=== PATIENT | male | born 1955 | race Caucasian/White ===

== ENCOUNTER 2016-10-12 10:55 | Inpatient (IN) | payer BC ==
[2016-10-12] MEDS ORDERED: Acetaminophen 325 MG Tab PO PRN (12:35)
[2016-10-12] MEDS: D5 1/2 NS w/ 20 mEq/L KCl 1,000 ML IV SCH (13:49)
[2016-10-12] MEDS: Sodium Chloride 0.9% 10 ML Syringe FLUSH PRN (13:49)
[2016-10-12] MEDS ORDERED: LORazepam 2 MG/ML Syringe IVPUSH PRN (17:44)
[2016-10-12] MEDS ORDERED: Pantoprazole 40 MG in Sodium Chloride 0.9% 100 ML IV SCH (17:45)
[2016-10-12] MEDS ORDERED: Pantoprazole 80 MG in Sodium Chloride 0.9% 100 ML IV ONE (18:00)
[2016-10-12] MEDS ORDERED: Sodium Chloride 0.9% 10 ML Syringe FLUSH PRN (18:20)
[2016-10-12] MEDS ORDERED: Pantoprazole 80 MG in Sodium Chloride 0.9% 100 ML IV SCH (18:30)
[2016-10-12] MEDS ORDERED: Acetaminophen 650 MG Supp RECTAL PRN (20:08)
[2016-10-12] MEDS ORDERED: Iopamidol 612 MG/ML 100 ML Bottle IVPUSH ONE (22:13)
[2016-10-12] MEDS ORDERED: Furosemide 20 MG/2 ML VIAL IVPUSH ONE (23:00)
[2016-10-13] MEDS ORDERED: Furosemide 20 MG/2 ML VIAL IVPUSH ONE (04:00)
--- NOTE | 2016-10-13 04:49 | HP ---
CHIEF COMPLAINT: Black stools for the last week. HISTORY OF PRESENT ILLNESS: Mr. Samaniego is a 61-year-old gentleman, who was referred from clinic for admission. He was seen by Barry Diallo NP. He presented with complaints of feeling weak, no energy, sweating over the last week. He also noted that for the last week his stools have been quite dark, almost black. He denied any other symptoms. He was referred for workup. Lab work at the clinic also showed that he had developed an anemia. Hemoglobin and hematocrit were 10 and 30.7 compared to 16.7 and 49.2 four months ago. He was admitted for further evaluation and management. PAST MEDICAL HISTORY: Chronic renal calculi, most recent in May 2016; chronic headaches and neck pain due to degenerative disk disease of cervical spine; vitamin D deficiency; osteoarthritis of the knees; chronic environmental allergies; hypertension; BPH without urinary obstruction; bilateral sensorineural hearing loss, 06/11/2016, left greater than right. PAST SURGICAL HISTORY: Bilateral carpal tunnel release, bilateral knee replacements, colonoscopy in March 2012. IMMUNIZATION HISTORY: Flu vaccine on 03/02/2016. Tdap 06/11/2016. He has never received the pneumonia vaccines. SOCIAL HISTORY: He grew up in the [facility]. He graduated from [employer]. No service. He is . He and his own Vidmaker. They have 2 children and 1 grandchild. He has never smoked cigarettes. He does not chew tobacco. He drinks only occasional social alcohol. FAMILY HISTORY: Both of his parents are . His father had coronary artery disease and a myocardial infarction. His mother 2 years ago of complications of advanced Parkinson's disease. One brother 3 years ago of unknown cause, possible blood clot. He has 2 living brothers and 1 sister. REVIEW OF SYSTEMS: He states that he first noticed dark stools about 1 week ago. He denies any previous episode. He feels weak, he has no energy. He sweats easily with any kind of exertion. There has been no nausea or vomiting. No bright red blood by mouth. He has had some crampy abdominal pain and he points mostly to the left upper quadrant lateral to the midline. He did have an EGD in the past by Dr. Lopez, which showed some type of ulceration in the esophagus and had been on Prilosec in the past. It should be noted that he has been on a daily anti- inflammatory, Mobic for his chronic arthritis of the neck. During this time, he was not on any GI prophylaxis. He has had recurrent renal calculi for which he is on chronic hydrochlorothiazide which apparently helps. He has multiple environmental allergies. He has chronic degenerative disk disease of cervical spine and goes to [facility] 2[facility]3 times a year for injections. He has multiple environmental allergies including molds, pollen, grass, trees. At times the allergies cause some chest tightness for which he uses an occasional inhaler. He has bilateral sensorineural hearing loss, worse on the left than the right. Denies any new headaches. No recent vision or hearing changes. He does wear reading glasses. He denies any swallowing difficulties or sore throat. He denies chest pain. He has felt short of breath for the last week. No history of obstructive sleep apnea. Appetite is good. Weight is stable. He has noticed increased number of bowel movements in the last week. He gets up about once a night to urinate. He has had no recent falls or injuries. No recent illnesses or hospitalizations. CURRENT MEDICATIONS: 1. Nortriptyline 50 mg daily. 2. Albuterol inhaler p.r.n. 3. Hydrochlorothiazide 25 mg daily. 4. Trazodone 100 mg daily for sleep. 5. Singulair 10 mg daily. 6. Zyrtec allergy p.r.n. 7. Fluticasone nasal spray. 8. Meclizine 25 mg p.r.n. 9. He has been on Mobic 15 mg daily for at least for last 2 years. 10.Vitamin D 400 units daily. 11.He is on several uygw-kya-zrkyege supplements including potassium gluconate, Prostate Health and Osteo Bi-Flex vitamin. ALLERGIES: He has environmental allergies, but no known drug allergies. PHYSICAL EXAMINATION: General: He is a pleasant gentleman, he is in no acute distress. He is alert, oriented, articulate, and participated throughout the visit. Vital Signs: Blood pressure was 129/87 on the left 121/78 on the right. Pulse 88 and regular, respiratory rate 20, oxygen saturation 97% on room air. Height 5 feet 8 inches. Weight 270 pounds. BMI 38.6. HEENT: Unremarkable. ENT was clear. He had pale membranes in the lower conjunctival sac. Mouth showed moist mucous membranes. ENT was otherwise clear. No JVDs or bruits. No adenopathy. No thyromegaly. Chest: Showed clear but diminished bilateral breath sounds without wheezes, rales, or rhonchi. Heart: Showed irregular rate and rhythm with muffled heart sounds. Abdomen: Soft, obese, benign, hypoactive bowel sounds. There is some mild tenderness on palpation in the left upper quadrant lateral to the midline. No guarding or rebound. No masses were appreciated. Extremities: Showed no edema. Neurological: There were no gross motor or sensory deficits. Skin: Warm and dry to touch. Palms were pale. He does have a ramos which reduces his pallor. LABS: Labs were performed in clinic today. CBC showed a white count of 9.1, platelets were 205,000, hemoglobin and hematocrit were 10.2 and 30.7 with an MCV of 90.1. Four months ago, hemoglobin and hematocrit had been 16.7 and 49.2. Chemistry showed BUN and creatinine of 18 and 1.2 with a GFR of more than 60. Electrolytes were unremarkable. Nonfasting blood sugar was 121. Albumin was 3.3. LFTs were otherwise within normal limits. Lipase was normal at 163 (73 and 393). Amylase was normal at 68 (25-115). IMPRESSION: A 61-year-old gentleman, presents with history of melena for the last week. He has been on a daily NSAID, Mobic for the last 2 years. PLAN: 1. He was admitted as an acute inpatient for further workup of his acute anemia and the possibility of an upper GI bleed. 2. He was typed and crossed, 2 units were placed on hold. He is A positive antibody negative. 3. We will recheck hemoglobin later today and follow carefully and transfuse as indicated. I discussed this with Mr. Samaniego and he agreed to take a blood transfusion as needed. 4. He was kept n.p.o. except for ice chips during the day. He was started on IV fluids with D5 half-normal saline with 20 mEq of potassium per L. 5. He was given a Protonix IV bolus followed by Protonix 8 mg/hour continuous drip. CODE STATUS: FULL CODE. Case was discussed with Dr. Lopez and patient was referred to him for endoscopy. Mr. Samaniego will undergo upper endoscopy tomorrow morning, October 13, 2016. After 10 p.m. this evening, he will be completely n.p.o. CONDITION: At the time of admission, hemodynamically neurologically stable. [facility] /[id number] MTDD
--- NOTE | 2016-10-13 04:53 | PN ---
DATE: 10/13/2016 Mr. Samaniego is a 61-year-old gentleman who was admitted yesterday directly from clinic with the chief complaint of melena for the last week. He was found to be significantly anemic. Hemoglobin and hematocrit were 10.2 and 30.7 compared to 16.7 and 49.2 four months ago. We have been monitoring his hemoglobin and hematocrit,. Repeat hemoglobin and hematocrit this afternoon were 9.9 and 29.8. He has agreed to transfusion when indicated. It was decided that he would be transfused 1 unit of packed red blood cells prior to planned endoscopy later this morning. Before the blood could be started, he developed a temperature of 100.3 degrees. Temperature was repeated several times over the next 2 hours and remained elevated at 101.2. He was given rectal Tylenol for this as we were keeping him n.p.o. The remainder of his vital signs remained stable. Blood pressure was in the range to 125/65, pulse ranged between 80 and 90, and oxygen saturations 100% on room air. Because of the fever and out of concern for any acute intraabdominal event, we did further testing. Repeat hemoglobin and hematocrit were 9.4 and 28.1. Lactic acid was 1.0. Urinalysis showed a clear yellow urine with a specific gravity of 1.015 and was a negative study. We also did 2 sets of blood cultures. We ordered a CT scan of the abdomen and pelvis with the use of IV contrast to rule out any other intraabdominal infection or even the possibility of a perforation. Findings showed liver to be borderline mildly enlarged, but otherwise unremarkable. The gallbladder was unremarkable. There were no stones. No ductal dilatation. Pancreas was unremarkable. Remainder of the abdominal organs were seen. There was diffuse colonic diverticulosis without any evidence for acute diverticulitis. Appendix was normal with no sign of infection. Bladder was unremarkable. Abdomen and pelvis showed no free air. No significant fluid collection. There were diffuse multilevel chronic degenerative changes of the lower thoracic and lumbar spine. There was no adenopathy. There was some mild central mesenteric fat stranding with mildly prominent lymph nodes. This was compared to previous study from November 2014. The findings were felt to show stable chronic mild mesenteric adenitis. There were no acute incidental findings. Following the CT scan, we did transfuse Mr. Samaniego 1 unit of packed red blood cells (A positive, antibody negative). He will receive 40 mg IV Lasix following the transfusion. He continues on IV fluids with D5 half-normal saline with potassium. Later today, we will recheck his hemoglobin and hematocrit and a basic panel when he returns from endoscopy. He is wearing MARGOT hose for VTE prophylaxis. We are not using any pharmacological prophylaxis because of the probable GI bleed. We will continue to monitor him closely. His temperature has come down and has now remained below 100 degrees since about 2 a.m. this morning. Vital signs have remained stable. IMPRESSION: Probable upper gastrointestinal bleed. PLAN: For EGD this morning with Dr. Lopez. [facility] /[id number] MTDMary Ellen
[2016-10-13] MEDS ORDERED: Midazolam 1 MG/ML 2 ML SDV ONE (05:48)
[2016-10-13] MEDS ORDERED: fentaNYL 100 MCG/2 ML SDV ONE (05:48)
[2016-10-13] MEDS ORDERED: fentaNYL 100 MCG/2 ML SDV IV ONE ×3 (06:17→16:30)
[2016-10-13] MEDS ORDERED: Midazolam 1 MG/ML 2 ML SDV IV ONE ×3 (06:18→16:30)
--- NOTE | 2016-10-13 07:04 | PN ---
DATE: 10/13/2016 SUBJECTIVE: Denies any specific difficulties. No upper abdominal pain. No lower abdominal cramps. No dyspepsia. Denies anginal kind of chest pain, palpitations, or exertional dyspnea. No postural dizziness. Did not sleep much at night. OBJECTIVE: Vital Signs: Stable. Lungs: No adventitious sounds heard. Heart: S1 and S2, regular. No CHF. No leg edema. Spine: No CVA or spinal tenderness noted. Abdomen: Obese, soft. No areas of tenderness elicited. Bowel sounds active. INVESTIGATIONS: Most recent hemoglobin 9.4, hematocrit 28.1, lactic acid 1. UA; 0 to 5 rbc's and few bacteria. PLAN: Continue with intravenous fluids, frequent hemoglobin and hematocrit monitor, on intravenous pantoprazole now. Will proceed with EGD as scheduled, the patient acceptable. [facility] /[id number] HERMINIO
--- NOTE | 2016-10-13 07:10 | OR ---
DATE: 10/13/2016 PROCEDURES: Esophagogastroduodenoscopy and multiple pinch biopsies. INSTRUMENT USED: GIF-H180 Olympus video panendoscope. PREMEDICATIONS: No oral topical anesthesia used. Fentanyl 100 mcg intravenous, Versed 2 mg intravenous. Nasal O2 cannula. The procedure was done under pulse oximetry, BP recording, and director of cardiac cath lab. INDICATION: The patient on long-term NSAIDs, coming in with gastrointestinal bleeding and related anemia requiring packed cell transfusions. Esophagogastroduodenoscopy is performed for detection of any active erosive lesions, [place] esophagus and/or malignancy also under consideration, H. pylori status to be determined, endoscopic hemostasis therapy if needed. DESCRIPTION OF PROCEDURE: The scope was passed with ease. Adequate visualization of the esophagus was made from proximal to distal areas. No upper esophageal lesions identified. No distal esophageal stricture. No uphill or downhill esophageal varices. No Velma-Isbell tear. No evidence of erosive esophagitis by [place] criteria. No esophageal polyp or tumor mass identified. Z-line was seen at around 40 cm distal to the oral verge, configuration consistent with grade 1 by ZAP classification. No proximal gastric varices noted. Gastric fundus examination by retroflexion showed no polypoid lesions. No gastric ulcer, malignant mass, or vascular ectasia identified. Duodenal bulb showed no ulcer. Visualized second part of the duodenum was unremarkable. Multiple pinch biopsies were taken from the gastric antrum and proximal body and sent for PyloriTek test for H. pylori, and if negative in an hour, tissue is to be sent for histopathology. No bleeding was noted from any of the visualized areas at the completion of examination. Photographs were taken of the duodenal bulb, gastric antrum, fundus, and distal esophagus. IMPRESSION: Normal study. The patient tolerated the procedure well. [facility] /[id number]
--- NOTE | 2016-10-13 07:17 | PN ---
DATE: 10/13/2016 TIME: 6:45 a.m. SUBJECTIVE: Feels well. Denies any specific difficulties. OBJECTIVE: Vital signs: Stable. Abdomen: Soft. RECOMMENDATIONS: Continue with intravenous fluids, frequent hemoglobin and hematocrit monitor, packed cell transfusions as needed, PT/PTT. Colonoscopy scheduled with 4 L of GoLYTELY with bowel preparation tomorrow, the patient acceptable. IMPRESSION: 1. Iron-deficiency anemia. 2. Gastrointestinal bleeding. 3. Exogenous obesity. 4. Nephrolithiasis. 5. Degenerative joint disease of cervical spine, status post bilateral carpal tunnel release, status post bilateral knee replacement surgery. 6. Vitamin D deficiency. 7. Benign prostatic hypertrophy. 8. Hearing impairment. [facility] /[id number]
[2016-10-13] MEDS: Dextrose 5%-0.45% NaCl 1,000 ML IV SCH (07:53)
[2016-10-13] MEDS: D5 1/2 NS w/ 20 mEq/L KCl 1,000 ML IV SCH (10:46)
[2016-10-13 11:05] LABS: CHLORIDE,CL 101 mmol/L (101-111); SODIUM,NA 138 mmol/L (135-145)
--- NOTE | 2016-10-13 12:11 | CONS ---
SERVICE DATE: 10/12/2016 HISTORY OF PRESENT ILLNESS: This 61-year-old gentleman is seen in Gastroenterology consultation for further evaluation and management of gastrointestinal bleeding. He has been on meloxicam alf for arthralgia involving multiple joints as well as left-sided neck pain. Recently he was started on tricyclic for left-sided headache and neck pain 3 weeks ago. He took the medicine for a couple of weeks, and having noted some dark stools discontinued the medication few days ago. About 10 days ago, he noted black stools and also some bright red blood in the stools. Has not taken iron pills or Pepto-Bismol. Had some dyspepsia as well as abdominal pain in the past 10 days or so. Had some heartburn. No vomiting. No hematemesis. Has been eating as usual. Denies any recent progressive alteration in bowel habits. No alternating diarrhea and constipation. No progressive leg edema. REVIEW OF SYSTEMS: He has had longstanding difficulties with left-sided neck pain and headache. Denies any recent vertigo or syncopal episodes. Denies any change in urinary habits. No progressive leg edema or intermittent claudication. No difficulty with ambulation. Denies any low back pain of significance. Has had difficulties with arthralgia involving multiple joints. No recent nasal congestion, cough, or expectoration. No anginal chest pain, palpitations, or exertional dyspnea. No progressive weight loss or gain in the recent months. SOCIAL HISTORY: Runs a business. Stays with his . Does not take aspirin- related medications regularly. Does not take much of coffee and pop drinks. No milk intolerance. FAMILY HISTORY: Positive for kidney stone. Negative for IBD, colon polyp, or colon cancer. Positive for heart disease. PAST MEDICAL HISTORY AND SURGICAL HISTORY: Past illness: Exogenous obesity, DJD, status post bilateral knee replacement surgical procedures. No previous peptic ulcer disease or hepatitis. ALLERGIES: No allergy to any medications. MEDICATIONS: Medications he has been taking at home included turmeric and Mobic. Was on nortriptyline till a week ago, taking for a couple of weeks before. PHYSICAL EXAMINATION: Vital Signs: Weight 266.2 pounds, BP 118/60, temperature 98, pulse 65 per minute. General: Alert, oriented, a bit anxious. Neck: No generalized lymphadenopathy. No carotid bruit heard. No thyroid nodules felt. Lungs: Clear. Heart: S1 and S2 regular. Extremities: No pitting edema of the legs noted. No phlebitis. No tremors. No peripheral signs of chronic liver disease noted. Abdomen: Obese, soft. No ascites. No hepatosplenomegaly. Some tenderness elicited in all the areas. Bowel sounds active. Rectal: Stools obtained, black in color. Hemoccult positive. IMPRESSION: 1. Gastrointestinal bleeding. 2. Iron deficiency anemia. 3. Exogenous obesity. 4. Degenerative joint disease. 5. Status post bilateral knee replacement surgery. 6. History of nephrolithiasis. RECOMMENDATIONS: N.p.o. except for ice chips today. Intravenous fluids. Intravenous PPI. Frequent hemoglobin, hematocrit determinations. PT, PTT. Packed cell transfusions if needed. Endoscopic evaluation discussed. He is acceptable to proceed with. Procedures, goals, limitations, and complications including remote events related to EGD, colonoscopy, biopsies, polypectomies, endoscopic hemostasis therapy, and conscious sedation explained in detail. Missed lesions, malignant and potentially malignant talked about, alternatives discussed and informed consent obtained. EGD scheduled for 10/13/2016, will follow. [facility] /[id number]
[2016-10-13] MEDS ORDERED: Potassium Chloride 10 MEQ Tab.ER PO ONE (14:02)
[2016-10-13] MEDS ORDERED: Polyethylene Glycol/Electrolytes 4,000 ML Bottle PO SCH (17:00)
[2016-10-13] MEDS: Sodium Chloride 0.9% 10 ML Syringe FLUSH PRN (17:42)
[2016-10-13] MEDS: Pantoprazole 40 MG Vial IVPUSH SCH (17:42)
[2016-10-13] MEDS: Polyethylene Glycol/Electrolytes 4,000 ML Bottle PO SCH (17:51)
[2016-10-14] MEDS: D5 1/2 NS w/ 20 mEq/L KCl 1,000 ML IV SCH (00:17)
[2016-10-14] MEDS: Polyethylene Glycol/Electrolytes 4,000 ML Bottle PO SCH (02:00)
[2016-10-14] MEDS: Pantoprazole 40 MG Vial IVPUSH SCH (05:14)
[2016-10-14] MEDS ORDERED: fentaNYL 100 MCG/2 ML SDV ONE (06:16)
[2016-10-14] MEDS ORDERED: Midazolam 1 MG/ML 2 ML SDV ONE (06:16)
[2016-10-14] MEDS ORDERED: fentaNYL 100 MCG/2 ML SDV IV ONE ×3 (06:32→13:10)
[2016-10-14] MEDS ORDERED: Midazolam 1 MG/ML 2 ML SDV IV ONE ×8 (06:33→13:49)
[2016-10-14] MEDS: Dextrose 5%-0.45% NaCl 1,000 ML IV SCH (06:58)
--- NOTE | 2016-10-14 07:05 | PN ---
DATE: 10/13/2016 SUBJECTIVE: Mr. Samaniego underwent upper endoscopy this morning. This was performed by Dr. Lopez. The upper endoscopy was completely within normal limits and did not reveal any source for his blood loss. Multiple biopsies were taken for H. pylori and the H. pylori urease test returns negative. The results were discussed Dr. Lopez. Mr. Samaniego is now scheduled to have a colonoscopy performed tomorrow morning, October 14. His diet will be advanced today to a clear liquid diet and he will start his bowel prep at 5 p.m. A gallon of GoLYTELY has been ordered and instructions placed in the computer. His hemoglobin and hematocrit were rechecked today and continue to improve and are now 11.2 and 34. Hemoglobin and hematocrit at the time of admission were 9.9 and 29.8. He received 1 unit of packed red blood cells (A positive, antibody negative) and has remained hemodynamically stable throughout the admission. PHYSICAL EXAMINATION: General: He is seated in his room. He appears improved since the time of admission. His color is better; he is not as pale. He states he continues to have some mild left upper quadrant pain, but in general does feel better, but continues to feel tired. Vital Signs: Blood pressure was 123/74, pulse 81, respiratory rate 20, oxygen saturation 98% on room air. He is afebrile. ENT: Clear. Chest: Showed clear with diminished bilateral breath sounds. Heart: Showed regular rate and rhythm. Abdomen: Obese, soft, benign with minimal tenderness in the left upper quadrant. Neurological: He is intact. IMPRESSION: A 61-year-old man, presented with profound anemia and melena. EGD today was within normal limits. PLAN: He is now scheduled for colonoscopy on the morning of October 14, 2016. He does have extensive diverticulosis. The differential diagnosis for the blood loss anemia still includes the possibility of a diverticular bleed,as well as angiodysplasia or some other intraabdominal/colonic pathology. We will continue the present management and await the results of the colonoscopy. Late labs: I did contact the [facility] lab to see if there were pre- transfusion blood samples from 10/12 available. They did have blood and additional tests were ordered from those samples including: iron, TIBC, ferritin, and reticulocyte count. Iron was in the low- normal range at 37 (35-150). Total iron binding capacity was in the low-normal range at 263 (250 to 450). Ferritin was elevated at 395 (3 to 244). Reticulocyte count was elevated at 4.8% (0.5-3.5%). In addition, stool collected on the in the clinic was positive for blood. [facility] /[id number] MTDD
--- NOTE | 2016-10-14 07:23 | PN ---
DATE: 10/14/2016 SUBJECTIVE: Denies any specific difficulties. Did not sleep much at night. No significant abdominal pain. No anginal kind of chest pain, palpitations, or shortness of breath. No cough or expectoration. No chills. OBJECTIVE: Vital Signs: Stable. General: Alert, oriented. Lungs: Clear. No CHF. Heart: S1, S2, regular. Abdomen: Obese, soft. No areas of significant tenderness elicited. Bowel sounds active. INVESTIGATIONS: Hemoglobin and hematocrit stable around 11. We will proceed with colonoscopy as scheduled. [facility] /[id number]
--- NOTE | 2016-10-14 07:26 | OR ---
DATE: 10/14/2016 PROCEDURE: Total colonoscopy. INSTRUMENT USED: PCF-160AL Olympus video colonoscope. PREMEDICATIONS: Fentanyl 100 mcg intravenous, Versed 4.5 mg intravenous. Nasal O2 cannula. The procedure was done under pulse oximetry, BP recording, and manager monitoring. INDICATION: The patient with gastrointestinal bleeding, requiring packed cell transfusions and EGD negative for bleeding areas. Colonoscopic examination is done for detection of any polypoid lesions and removal, endoscopic hemostasis therapy if needed. DESCRIPTION OF PROCEDURE: Initial rectal exam was unremarkable. Rigid anoscopy was normal. The colonoscope was passed with ease. Numerous scattered diverticula were noted in the entire colon, more so in the distal left colon along with some deformity. The scope was passed with ease up to the ileocecal area, photographs were taken of the normal-appearing cecum, identified by double-bulged ileocecal folds. No bleeding was noted from any of the visualized areas at the commencement of the examination. No stricture. No vascular ectasia. No large isolated ulcerations seen. No evidence of diffuse inflammatory bowel disease in the form of friability, contact bleeding, or ulcerations. No polyp or tumor mass identified. Probing the proximal sides of folds and flexures, using adequate distention and clearing of the stool material, withdrawal of the scope was made, cecum to rectum time over 6 minutes. No bleeding was noted from any of the visualized areas at the completion of examination. IMPRESSION: [place] diverticulosis. The patient tolerated the procedure well. [facility] /[id number]
--- NOTE | 2016-10-14 07:33 | PN ---
DATE: 10/14/2016 TIME: 7:00 a.m. Feels well. No specific difficulties. Stable vital signs. Abdomen is soft. RECOMMENDATIONS: If stable, can be discharged home with iron pills and follow up at the clinic. For any further evaluation and management, return early if needed. PT/PTT unremarkable. Needs to follow up with reference to elevated CRP. IMPRESSION: 1. Iron deficiency anemia, status post gastrointestinal bleeding. 2. [place] diverticulosis. [facility] /[id number]
[2016-10-14 11:22] VITALS: BP 126/73
--- NOTE | 2016-10-14 12:02 | DISCH ---
FINAL DIAGNOSES: 1. Probable gastrointestinal bleed related to nonsteroidal antiinflammatory drug use. 2. Anemia, probable acute blood loss. 3. Osteoarthritis. 4. Degenerative disease of the spine. 5. Benign prostatic hypertrophy. SUMMARY OF HOSPITAL COURSE: Mr. Samaniego is a 61-year-old man who presented with complaint of weakness and generalized body malaise. He stated that his stool was dark in color and later became black. Complete blood count was obtained and it showed a hemoglobin down to 10 from 16 four months ago. The patient had been using Mobic for the past 2 years. We consulted Gastroenterology and he proceeded to have upper and lower gastrointestinal endoscopy that did not show any abnormality. The patient will be discharged on oral iron and will have a repeat complete blood count in 1 week. He will also be discharged on Protonix. Also, has been advised to quit using the Mobic. If he has to use it, he has to be on proton pump inhibitor, but at this point because of his weakness, I will recommend holding it for now. The patient required transfusion of 1 unit of packed red blood cells during hospitalization. Hemoglobin improved to 11.2. PHYSICAL EXAMINATION: General: The patient is alert, oriented to place, time, and person. Head: Atraumatic and normocephalic. Ear, Nose, and Throat: Unremarkable. Neck: Supple. Chest: Clear to auscultation. CVS: Regular rate and rhythm. Abdomen: Soft, nontender. Extremities: No pedal edema. No finger clubbing. Skin: No rash. [facility] /[id number]
== END 2016-10-14 13:50 | disposition home or self-care (01) | DRG 254 ==
LOC: DL.MS 11:33 → UNDOADMIN 11:33 → DL.MS 12:35
PROVIDERS: ADMIT Internal Medicine; ATTEND Internal Medicine
PROC: 0DB88ZX Excision of Small Intestine, Via Natural or Artificial Opening Endoscopic, Diagnostic (ICD-10-PCS; 2016-10-13)
PROC: 30233N1 Transfusion of Nonautologous Red Blood Cells into Peripheral Vein, Percutaneous Approach (ICD-10-PCS; 2016-10-13)
PROC: 0DJD8ZZ Inspection of Lower Intestinal Tract, Via Natural or Artificial Opening Endoscopic (ICD-10-PCS; principal; 2016-10-14)
DX: K92.1 Melena (principal); D50.9 Iron deficiency anemia, unspecified; K57.30 Diverticulosis of large intestine without perforation or abscess without bleeding; M19.90 Unspecified osteoarthritis, unspecified site; M50.30 Other cervical disc degeneration, unspecified cervical region; E55.9 Vitamin D deficiency, unspecified; M17.0 Bilateral primary osteoarthritis of knee; I10 Essential (primary) hypertension; N40.0 Benign prostatic hyperplasia without lower urinary tract symptoms; E66.09 Other obesity due to excess calories; Z68.38 Body mass index [BMI] 38.0-38.9, adult; N20.0 Calculus of kidney; Z96.653 Presence of artificial knee joint, bilateral; Z79.899 Other long term (current) drug therapy
CPT/HCPCS: 36415; 36430; 74177; 80048; 81001; 83605; 84132; 85014; 85018; 85610; 85730; 86140; 86850; 86900; 86901; 86920; 86922; 87040; 87077; 87086; A9270-GY; C9113; J1940; J2060; J2250; J3010; J3480; J7042; J7050; P9016; Q9967

== ENCOUNTER 2019-06-25 11:56 | Emergency (ER) | payer BC ==
[2019-06-25 12:16] VITALS: BP 138/86
--- NOTE | 2019-06-25 12:35 | EDM.PDOC ---
ED HPI GENERAL MEDICAL PROBLEM - General Chief Complaint: Cardiovascular Problem Stated Complaint: COLD IN CHEST Time Seen by Provider: 06/25/19 12:32 Source of Information: Reports: Patient History Limitations: Reports: No Limitations - History of Present Illness INITIAL COMMENTS - FREE TEXT/NARRATIVE: 2 weeks h/o cough congestion chest tightness SOB, saw clinic x2 got nebs & steroids & ABX but not helping. gets SOB from usual activity. denies smoking denies asthma. - Related Data Allergies Allergy/AdvReac Type Severity Reaction Status Date / Time mold Allergy Severe Anaphylactic Verified 06/25/19 12:07 Shock wheat pollen Allergy Severe Anaphylactic Uncoded 06/25/19 12:08 Shock Home Meds: Home Meds Potassium 99 mg PO DAILY 12/05/14 [History] Albuterol [Proventil HFA] 6.7 gm INH BID 10/12/16 [History] Glucosamine/D3/Boswellia Cherry [Osteo Bi-Flex Tablet] 1 tab PO BID 10/12/16 [ History] Hydrochlorothiazide 25 mg PO DAILY 10/12/16 [History] Montelukast [Singulair] 10 mg PO BEDTIME 10/12/16 [History] Non-Formulary Medication [NF Drug] 1 tab PO DAILY 10/12/16 [History] Non-Formulary Medication [NF Drug] 1,000 each PO BID 10/12/16 [History] traZODone HCl [Trazodone HCl] 100 mg PO DAILY 10/12/16 [History] Ferrous Sulfate 325 mg PO BID #60 tablet 10/14/16 [Rx] Pantoprazole Sodium [Protonix] 40 mg PO DAILY #30 suspdr.pkt 10/14/16 [Rx] Past Medical History HEENT History: Reports: Allergic Rhinitis, Hard of Hearing Respiratory History: Reports: None Gastrointestinal History: Reports: None Genitourinary History: Reports: Prostate Disorder, Renal Calculus Other Genitourinary History: enlarged prostate Musculoskeletal History: Reports: Arthritis, Osteoarthritis Other Musculoskeletal History: knees, hands and neck Neurological History: Reports: Headaches, Chronic, Other (See Below) Other Neuro History: nerve ablasions in back of neck Psychiatric History: Reports: None Endocrine/Metabolic History: Reports: None - Infectious Disease History Infectious Disease History: Reports: Shingles Other Infectious Disease History: had vaccine after outbreak - Past Surgical History GI Surgical History: Reports: Colonoscopy Other GI Surgeries/Procedures: 2012 Male Surgical History: Reports: Other (See Below) Musculoskeletal Surgical History: Reports: Knee Replacement Other Musculoskeletal Surgeries/Procedures:: bilateral knee 2014,2016 Social & Family History - Family History Family Medical History: Noncontributory - Tobacco Use Smoking Status *Q: Never Smoker Second Hand Smoke Exposure: No - Caffeine Use Caffeine Use: Reports: Energy Drinks Other Caffeine Use: daily - Recreational Drug Use Recreational Drug Use: No ED ROS GENERAL - Review of Systems Review Of Systems: Comprehensive ROS is negative, except as noted in HPI. ED EXAM, GENERAL - Physical Exam Exam: See Below Exam Limited By: No Limitations General Appearance: Alert, WD/WN, Mild Distress, Other (discomfort) Ears: Hearing Grossly Normal Throat/Mouth: Normal Voice, No Airway Compromise Head: Atraumatic Neck: Non-Tender, Full Range of Motion Respiratory/Chest: Decreased Breath Sounds, Rhonchi Cardiovascular: Regular Rate, Rhythm GI/Abdominal: Soft, Non-Tender Neurological: Alert, Oriented, Normal Cognition, Normal Gait, No Motor/Sensory Deficits Psychiatric: Flat Affect Skin Exam: Warm, Dry, Normal Color Lymphatic: No Adenopathy Course - Vital Signs Last Recorded V/S: Last Vital Signs Temp 36.4 C 06/25/19 12:05 Pulse 54 L 06/25/19 14:00 Resp 18 06/25/19 12:05 BP 138/86 06/25/19 12:05 Pulse Ox 100 06/25/19 12:05 - Orders/Labs/Meds Orders: Active Orders 24 hr Category Date Time Status EKG 12 Lead [EKG Documentation Completion] [RC] STAT Care 06/25/19 12:31 Active RT Aerosol Therapy [RC] ASDIRECTED Care 06/25/19 13:52 Active Chest 2V [CR] Urgent Exams 06/25/19 14:02 Taken CULTURE BLOOD [BC] Stat Lab 06/25/19 12:43 Results Sodium Chloride 0.9% [Normal Saline] 1,000 ml Med 06/25/19 13:51 Active IV .BOLUS Medication Orders Sodium Chloride (Normal Saline) 1,000 mls @ 999 mls/hr IV .BOLUS ONE Stop: 06/25/19 14:51 Last Admin: 06/25/19 14:06 Dose: 999 mls/hr Labs: Laboratory Tests 06/25/19 06/25/19 06/25/19 Range/Units 12:43 12:43 12:43 WBC 11.0 H (5.0-10.0) 10^3/uL RBC 5.51 (4.6-6.2) 10^6/uL Hgb 17.2 D (14.0-18.0) g/dL Hct 49.2 (40.0-54.0) % MCV 89.3 (80-100) fL MCH 31.2 (27.0-34.0) pg MCHC 35.0 (33.0-35.0) g/dL Plt Count 194 D (150-450) 10^3/uL Neut % (Auto) 70.3 (42.2-75.2) % Lymph % (Auto) 19.2 L (20.5-50.1) % [place] % (Auto) 8.3 H (2-8) % Eos % (Auto) 1.9 (1.0-3.0) % Baso % (Auto) 0.3 (0.0-1.0) % D-Dimer, Quantitative (0-400) ng/mL Sodium 138 (135-145) mmol/L Potassium 3.2 L (3.6-5.0) mmol/L Chloride 102 (101-111) mmol/L Carbon Dioxide 28.0 (21.0-31.0) mmol/L Anion Gap 11.2 BUN 13 (7-18) mg/dL Creatinine 1.0 (0.6-1.3) mg/dL Est Cr Clr Drug Dosing 71.25 mL/min Estimated GFR (MDRD) > 60 BUN/Creatinine Ratio 13.00 Glucose 102 (74-105) mg/dL Lactic Acid 1.6 (0.5-2.0) mmol/L Calcium 9.0 (8.4-10.2) mg/dl Total Bilirubin 1.0 (0.2-1.0) mg/dL AST 23 (10-42) IU/L ALT 20 (10-60) IU/L Alkaline Phosphatase 50 (42-121) IU/L Troponin I < 0.02 (0.00-0.02) ng/ml B-Natriuretic Peptide 10 (0-100) pg/ml Total Protein 6.7 (6.7-8.2) g/dl Albumin 3.6 (3.2-5.5) g/dl Globulin 3.1 Albumin/Globulin Ratio 1.16 06/25/19 Range/Units 12:43 WBC (5.0-10.0) 10^3/uL RBC (4.6-6.2) 10^6/uL Hgb (14.0-18.0) g/dL Hct (40.0-54.0) % MCV (80-100) fL MCH (27.0-34.0) pg MCHC (33.0-35.0) g/dL Plt Count (150-450) 10^3/uL Neut % (Auto) (42.2-75.2) % Lymph % (Auto) (20.5-50.1) % [place] % (Auto) (2-8) % Eos % (Auto) (1.0-3.0) % Baso % (Auto) (0.0-1.0) % D-Dimer, Quantitative < 100 (0-400) ng/mL Sodium (135-145) mmol/L Potassium (3.6-5.0) mmol/L Chloride (101-111) mmol/L Carbon Dioxide (21.0-31.0) mmol/L Anion Gap BUN (7-18) mg/dL Creatinine (0.6-1.3) mg/dL Est Cr Clr Drug Dosing mL/min Estimated GFR (MDRD) BUN/Creatinine Ratio Glucose (74-105) mg/dL Lactic Acid (0.5-2.0) mmol/L Calcium (8.4-10.2) mg/dl Total Bilirubin (0.2-1.0) mg/dL AST (10-42) IU/L ALT (10-60) IU/L Alkaline Phosphatase (42-121) IU/L Troponin I (0.00-0.02) ng/ml B-Natriuretic Peptide (0-100) pg/ml Total Protein (6.7-8.2) g/dl Albumin (3.2-5.5) g/dl Globulin Albumin/Globulin Ratio Meds: Medications Generic Name Dose Route Start Last Admin Trade Name Freq PRN Reason Stop Dose Admin Sodium Chloride 1,000 mls @ 999 mls/hr 06/25/19 13:51 06/25/19 14:06 Normal Saline IV 06/25/19 14:51 999 mls/hr .BOLUS ONE Administration Discontinued Medications Generic Name Dose Route Start Last Admin Trade Name Terese PRN Reason Stop Dose Admin Albuterol/Ipratropium 3 ml 06/25/19 13:51 06/25/19 14:00 Duoneb 3.0-0.5 Mg/3 Ml NEB 06/25/19 13:52 3 ml ONETIME ONE Administration Methylprednisolone Sodium Succinate 125 mg 06/25/19 13:51 06/25/19 14:06 Solu-Medrol IVPUSH 06/25/19 13:52 125 mg ONETIME ONE Administration - Re-Assessments/Exams Free Text/Narrative Re-Assessment/Exam: 06/25/19 14:44 results discussed with pt who is feeling better s/p neb + IV Rx Departure - Departure Time of Disposition: 14:45 Disposition: Home, Self-Care 01 Condition: Good Clinical Impression: Acute bronchitis with bronchospasm Instructions: Acute Bronchitis, Adult, [id number] Forms: ED Department Discharge Additional Instructions: 1) rest 2) continue neb treatment 3 to 4 times daily for cough 3) continue present meds 4) see Sameer tomorrow for PULMONOLOGY REFERRAL and CHILD GUIDANCE COUNSELOR REFERRAL 5) recheck if there is any change or concerns Sepsis Event Note - Evaluation Sepsis Screening Result: No Definite Risk - Focused Exam Vital Signs: Vital Signs Temp Pulse Resp BP Pulse Ox 06/25/19 14:00 54 L 06/25/19 12:05 36.4 C 61 18 138/86 100 Date Exam was Performed: 06/25/19 Time Exam was Performed: 14:44 - My Orders Last 24 Hours: My Active Orders 06/25/19 12:31 EKG 12 Lead [EKG Documentation Completion] [RC] STAT 06/25/19 12:43 CULTURE BLOOD [BC] Stat 06/25/19 13:51 Sodium Chloride 0.9% [Normal Saline] 1,000 ml IV .BOLUS 06/25/19 13:52 RT Aerosol Therapy [RC] ASDIRECTED 06/25/19 14:02 Chest 2V [CR] Urgent - Assessment/Plan Last 24 Hours: My Active Orders 06/25/19 12:31 EKG 12 Lead [EKG Documentation Completion] [RC] STAT 06/25/19 12:43 CULTURE BLOOD [BC] Stat 06/25/19 13:51 Sodium Chloride 0.9% [Normal Saline] 1,000 ml IV .BOLUS 06/25/19 13:52 RT Aerosol Therapy [RC] ASDIRECTED 06/25/19 14:02 Chest 2V [CR] Urgent
[2019-06-25 13:37] LABS: ANION GAP 11.2; CHLORIDE,CL 102 mmol/L (101-111); SODIUM,NA 138 mmol/L (135-145)
[2019-06-25] MEDS ORDERED: Albuterol/Ipratropium 3.0-0.5 MG/3 ML Neb Soln NEB ONE (13:51)
[2019-06-25] MEDS ORDERED: methylPREDNISolone Sodium Succinate 125 MG/2 ML SDV IVPUSH ONE (13:51)
[2019-06-25] MEDS ORDERED: Sodium Chloride 0.9% 1,000 ML IV ONE (13:51)
[2019-06-25 14:02] VITALS: PULSE 54
== END 2019-06-25 15:20 | disposition home or self-care (01) ==
LOC: DL.ED 11:56
DX: J20.9 Acute bronchitis, unspecified (principal); M19.90 Unspecified osteoarthritis, unspecified site; Z91.018 Allergy to other foods; Z79.899 Other long term (current) drug therapy
CPT/HCPCS: 36415; 71046; 80053; 83605; 83880; 84484; 85025; 85379; 87040; 93005; 94640; 96361; 96374; 99285; J2930; J7030; J7620-GY

== ENCOUNTER 2020-08-30 14:36 | Emergency (ER) | payer BC ==
[2020-08-30] MEDS ORDERED: Propofol 200 MG/20 ML SDV IV ONE (14:37)
[2020-08-30 15:02] VITALS: BP 160/82
[2020-08-30] MEDS ORDERED: Bacitracin Oint 1 GM U/D Packet TOP ONE (15:02)
[2020-08-30] MEDS ORDERED: Lidocaine 1% 30 ML SDV INJECT ONE (15:02)
[2020-08-30 15:10] VITALS: PULSE 52
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
--- NOTE | 2020-08-30 16:25 | CR ---
PROCEDURE INFORMATION: Exam: XR Right Shoulder Exam date and time: 08/30/2020 3:58 PM Age: 65 years old Clinical indication: Pain; Shoulder; Right; Additional info: Post reduction TECHNIQUE: Imaging protocol: XR Right shoulder. Views: 1 view. COMPARISON: CR Shoulder Comp Rt 08/30/2020 3:07 PM FINDINGS: Bones/joints: Scapular Y-view of the right shoulder shows [facility] of normal glenohumeral alignment in this projection compared with the radiograph 3:12 p.m. today. Bone overlap obscures detail Soft tissues: Normal. IMPRESSION: Normal glenohumeral alignment on single scapular Y-view.
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
== END 2020-08-30 16:42 | disposition home or self-care (01) ==
LOC: DL.ED 14:36
DX: S43.004A Unspecified dislocation of right shoulder joint, initial encounter (principal); S01.81XA Laceration without foreign body of other part of head, initial encounter; Z91.048 Other nonmedicinal substance allergy status; Z91.018 Allergy to other foods; V86.99XA Unspecified occupant of other special all-terrain or other off-road motor vehicle injured in nontraffic accident, initial encounter
CPT/HCPCS: 01620; 12011; 23650; 70450; 72125; 73020-RT; 73030-RT; 73070-RT; 73100-RT; 73590-RT; 99284; 99284-25; J2704

== ENCOUNTER 2022-12-27 00:32 | Emergency (ER) | payer BC ==
[2022-12-27] MEDS ORDERED: Take Home: Azithromycin 250 MG, 2 Tab Pack PO ONE (02:07)
[2022-12-27] MEDS ORDERED: Take Home: predniSONE 20 MG, 4 Tab Pack PO ONE (02:07)
[2022-12-27 02:18] VITALS: BP 121/90; PULSE 70
== END 2022-12-27 02:24 | disposition home or self-care (01) ==
LOC: DL.ED 00:32
DX: J02.9 Acute pharyngitis, unspecified (principal); J20.9 Acute bronchitis, unspecified; H92.03 Otalgia, bilateral; F19.90 Other psychoactive substance use, unspecified, uncomplicated; Z91.048 Other nonmedicinal substance allergy status
CPT/HCPCS: 99282; 99283; A9270